=== PATIENT | male | born 1975 | race Caucasian/White ===

== ENCOUNTER 2016-12-03 11:34 | Emergency (ER) | payer OTHER ==
[~2016-12-03] VITALS: Ht 190.5 cm; Wt 95.4 kg
[~2016-12-03 11:34] MED LIST: CHLO25CA10 PO; CLON2TAB3 PO; ESCI1TAB10 PO
[2016-12-03 11:40] VITALS: TEMP 36.9; Ht 190.5 cm; Wt 95.4 kg
[2016-12-03] MEDS ORDERED: CITA40TA12 PO (11:51)
[2016-12-03] MEDS ORDERED: CLONAZEPAM 1 MG TAB PO STA ×2 (12:45→15:14)
[2016-12-03] MEDS ORDERED: MULTI-VITAMIN INFUSION INJ 10 ML, THIAMINE HCL INJ 100 MG, FoLIC ACID INJ 1 MG in SODIU... IV ONE (12:45)
[2016-12-03] MEDS ORDERED: ONDANSETRON INJ 2 MG/ML 2 ML VIAL IV STA (12:45)
[2016-12-03 13:45] LABS: HEMATOCRIT 46.6 % (42-52); MEAN CELL VOLUME 94.1 fL (80-100); MEAN CORPUSCULAR HEMOGLOBIN 34.1 pg (25-34); MEAN CORPUSCULAR HGB CONC 36.3 g/dl (32-36); MEAN PLATELET VOLUME 9.9 fL (7.4-10.4); PLATELET COUNT 209 K/uL (130-400); RED BLOOD COUNT 4.95 M/uL (4.7-6.1)
[2016-12-03 14:04] LABS: BUN/CREATININE RATIO 9.1 (10-20); CALCIUM 8.2 mg/dl (8.5-10.1); MAGNESIUM 2.2 mg/dl (1.8-2.4); POTASSIUM 3.5 mmol/L (3.5-5.1)
[2016-12-03 14:11] LABS: BASO % 0.3 %; BASO ABS # 0.03 K/uL (0-0.2); COMPLETE YES; IG% 0.5 %; LYMPH % 12.6 %; LYMPH ABS # 1.48 K/uL (1.2-3.4); MONO % 7.7 %; NEUT % 78.9 %
[2016-12-03 14:13] LABS: ACETAMINOPHEN < 2 ug/ml (10-30)
--- NOTE | 2016-12-03 14:40 | EMERGENCY ROOM VISIT NOTE ---
History Report prepared by Otf: Elmer Stubbs Under the Supervision of: Dr. Ramona Cancino M.D. First contact with patient: 12:28 Chief Complaint: OTHER COMPLAINT Stated Complaint: ANXIETY, HERNIA History of Present Illness The patient is a 41 year old male with a history of anxiety who presents to the Emergency Room for an acute mental health evaluation. The patient has been feeling increasingly anxious lately. He has prescriptions for Celexa 40 mg daily and Klonopin 1 mg BID. The patient follows up with Dr. Elias, Psychiatrist. The patient ran out of his Klonopin yesterday, but his psychiatrist called for more today. The patient admits that he has had fleeting thoughts of not wanting to wake up in the morning but denies having thoughts of suicide. The patient had a rifle in his apartment, which his mother secured today. The patient has a history of alcohol abuse. He drank 20-30 bottles of vanilla extract along with beer and wine over the past three days. The patient started drinking again one month ago after being sober for two years. The patient's family would like him to go to rehab, but he says he has an obligation to watch a friend's dog for one month. The patient has not been eating well. He has been vomiting over the past 24 hours. He also complains of a right inguinal hernia for the past year that is becoming increasingly tender. He had a left hernia repaired three years ago. Source of History: patient Onset: today Position: other (psyche) Quality: other (mental health evaluation) Timing: other (acute) Associated Symptoms: + vomiting Review of Systems See HPI for pertinent positives & negatives. A total of 10 systems reviewed and were otherwise negative. Past Medical & Surgical Medical Problems: (1) Alcohol abuse (2) Anxiety (3) Depression Family History Depression Social History Smoking Status: Current Every Day Smoker Alcohol Use: heavy Drug Use: none Marital Status: Housing Status: lives with family Occupation Status: employed Current/Historical Medications Scheduled Chlordiazepoxide (Librium), 25 MG PO DIRECTED Citalopram Hydrobromide (Celexa), 40 MG PO DAILY Clonazepam (Klonopin), 2 MG PO BID Allergies Coded Allergies: Penicillins (Verified Adverse Reaction, Unknown, gassy, 12/03/16) Physical Exam Vital Signs Date Time Temp Pulse Resp B/P Pulse Ox O2 Delivery O2 Flow Rate FiO2 12/03/16 16:49 94 18 156/91 94 12/03/16 16:29 96 16 161/89 12/03/16 15:26 92 16 134/98 96 Room Air 12/03/16 14:40 93 18 147/91 95 Room Air 12/03/16 13:32 94 12/03/16 13:28 92 18 144/89 96 Room Air 12/03/16 12:28 103 18 133/98 94 Room Air 12/03/16 11:40 36.9 109 20 160/88 94 Room Air Physical Exam Vital signs reviewed. General: Somewhat unwell-appearing male, no distress, overall deconditioned, disheveled. HEENT: No scleral icterus, PERRLA, neck supple. Atraumatic. Cardiovascular: Regular rate and rhythm, no extra sounds. Pulmonary: Clear to auscultation bilaterally, normal work of breathing. Abdomen: Soft, nontender, nondistended, positive bowel sounds. Musculoskeletal: Atraumatic, no peripheral edema. Neurologic: Patient awake alert and oriented x 3, full strength in all 4 extremities. Cranial nerves 2 through 12 grossly intact. Skin: Warm, dry, no rash : Tenderness to palpation over the right inguinal region / right inferior lower quadrant. There is a palpable enlarged 4 cm region that is tender to palpation. There is no evidence of bowel extending into the scrotum. Genital exam was unremarkable. Inguinal rings without abnormality or distention. Left inguinal region is unremarkable. No evidence for strangulated hernia. Medical Decision & Procedures ER Provider Diagnostic Interpretation: US results as stated below per my review and radiologist interpretation: Limited abdominal ultrasound ABDOMEN FOR HERNIA CLINICAL HISTORY: right inguinal mass hernia TECHNIQUE: Real-time ultrasound COMPARISON STUDY: None FINDINGS: Evaluation of the right inguinal region shows a reducible fat-containing right inguinal hernia. There is no evidence for bowel containment. IMPRESSION: Reducible fat-containing right inguinal hernia. Electronically signed by: Michael Larson M.D. 12/03/2016 3:21 PM Dictated Date/Time: 12/03/2016 3:19 PM Laboratory Results 12/03/16 13:14 Red Blood Count 4.95, Mean Corpuscular Volume 94.1, Mean Corpuscular Hemoglobin 34.1, Mean Corpuscular Hemoglobin Concent 36.3, Mean Platelet Volume 9.9, Neutrophils (%) (Auto) 78.9, Lymphocytes (%) (Auto) 12.6, Monocytes (%) (Auto) 7.7, Eosinophils (%) (Auto) 0.0, Basophils (%) (Auto) 0.3, Neutrophils # (Auto) 9.23, Lymphocytes # (Auto) 1.48, Monocytes # (Auto) 0.90, Eosinophils # (Auto) 0.00, Basophils # (Auto) 0.03 12/03/16 13:14 Test 12/03/16 13:14 White Blood Count 11.70 K/uL (4.8-10.8) Red Blood Count 4.95 M/uL (4.7-6.1) Hemoglobin 16.9 g/dL (14.0-18.0) Hematocrit 46.6 % (42-52) Mean Corpuscular Volume 94.1 fL (80-100) Mean Corpuscular Hemoglobin 34.1 pg (25-34) Mean Corpuscular Hemoglobin Concent 36.3 g/dl (32-36) Platelet Count 209 K/uL (130-400) Mean Platelet Volume 9.9 fL (7.4-10.4) Neutrophils (%) (Auto) 78.9 % Lymphocytes (%) (Auto) 12.6 % Monocytes (%) (Auto) 7.7 % Eosinophils (%) (Auto) 0.0 % Basophils (%) (Auto) 0.3 % Neutrophils # (Auto) 9.23 K/uL (1.4-6.5) Lymphocytes # (Auto) 1.48 K/uL (1.2-3.4) Monocytes # (Auto) 0.90 K/uL (0.11-0.59) Eosinophils # (Auto) 0.00 K/uL (0-0.5) Basophils # (Auto) 0.03 K/uL (0-0.2) RDW Standard Deviation 43.3 fL (36.4-46.3) RDW Coefficient of Variation 12.7 % (11.5-14.5) Immature Granulocyte % (Auto) 0.5 % Immature Granulocyte # (Auto) 0.06 K/uL (0.00-0.02) Anion Gap 19.0 mmol/L (3-11) Est Creatinine Clear Calc Drug Dose 117.4 ml/min Estimated GFR () 108.6 Estimated GFR (Non- 93.7 BUN/Creatinine Ratio 9.1 (10-20) Calcium Level 8.2 mg/dl (8.5-10.1) Magnesium Level 2.2 mg/dl (1.8-2.4) Total Bilirubin 0.6 mg/dl (0.2-1) Direct Bilirubin 0.1 mg/dl (0-0.2) Aspartate Amino Transf (AST/SGOT) 122 U/L (15-37) Alanine Aminotransferase (ALT/SGPT) 68 U/L (12-78) Alkaline Phosphatase 166 U/L (45-117) Total Protein 7.3 gm/dl (6.4-8.2) Albumin 4.1 gm/dl (3.4-5.0) Lipase 222 U/L (73-393) Salicylates Level 2.5 mg/dl (2.8-20) Acetaminophen Level < 2 ug/ml (10-30) Ethyl Alcohol mg/dL 105.0 mg/dl (0-3) Laboratory results per my review. Medications Administered Medications (Trade) Dose Ordered Sig/Madelyn Route Start Time Stop Time Status Last Admin Dose Admin Clonazepam 1 mg 1 mg NOW STAT PO 12/03/16 12:45 12/03/16 15:15 DC 12/03/16 13:22 1 MG Multivitamins/ Thiamine HCl/ Folic Acid/Sodium Chloride (Mvi Infusion Inj/Vitamin B-1 Inj/Folvite Inj/ Nss 1000ml) 1,011.2 ml @ 300 mls/ hr Q3H23M ONCE IV 12/03/16 12:45 12/03/16 16:07 DC 12/03/16 13:17 300 MLS/HR Ondansetron HCl (Zofran Inj) 4 mg NOW STAT IV 12/03/16 12:45 12/03/16 15:15 DC 12/03/16 13:17 4 MG Miscellaneous Information (Nursing Verbal Med Order) 1 ea ONE ONCE N/A 12/03/16 14:45 12/03/16 14:45 DC 12/03/16 14:38 1 EA Clonazepam (Klonopin Tab) 1 mg NOW STAT PO 12/03/16 15:14 12/03/16 15:19 DC 12/03/16 15:25 1 MG ED Course 1230: Past medical records reviewed. The patient was evaluated in room B5. A complete history and physical examination was performed. 1245: Zofran 4 mg IV, Multivitamins 10 ml / Thiamine 100 mg / Folic Acid 1 mg / [id number] ml @ 300 mls/hr, Clonazepam 1 mg PO. 1514: Klonopin 1 mg PO. 1632: Upon reevaluation, the patient appeared to have improvement of his symptoms. I discussed findings with him. He verbalized agreement of the treatment plan. He was discharged home. Medical Decision Etiologies such as mood disorder, infection, hypoglycemia, electrolyte abnormalities, cardiac sources, intracerebral event, toxicologic, neurologic, as well as others were entertained. This patient was evaluated and appeared to be in no significant distress. IV access was obtained and laboratory work was drawn. The patient was hydrated with a banana bag, given 1 mg of Klonopin and IV Zofran. Laboratory work reveals alcohol of 105. Ultrasound of the right inguinal region was obtained and reveals a fat-containing inguinal hernia. Patient was evaluated by mental health and felt not to meet criteria for inpatient admission. The patient does not desire to go to rehabilitation at this time. He will be discharged with Librium per his request. 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 The patient was advised to follow-up with his psychiatrist and drug alcohol counseling. He will return to the ER for worsening of symptoms or any medical concerns. [place] Drug Monitoring Program Search Results: patient reviewed within database Drug Monitoring Findings: Patient has prescriptions mostly from his psychiatrist for benzos. Impression Primary Impression: Alcohol withdrawal Additional Impressions: Anxiety Inguinal hernia, right Scribe Attestation The scribe's documentation has been prepared under my direction and personally reviewed by me in its entirety. I confirm that the note above accurately reflects all work, treatment, procedures, and medical decision making performed by me. Departure Information Dispostion Home / Self-Care Prescriptions Chlordiazepoxide (Librium) 25 Mg Cap 25 MG PO DIRECTED, #18 CAP DAY 1- 50 mg QID DAY 2- 50 mg TID DAY 3- 25 mg TID DAY 4- 25 mg once Prov: Ramona Cancino M.D. 12/03/16 Referrals No Doctor, Assigned (PCP) Forms HOME CARE DOCUMENTATION FORM, IMPORTANT VISIT INFORMATION, WORK / SCHOOL INSTRUCTIONS Patient Instructions My [facility] [employer] Additional Instructions Diagnosis: Alcohol withdrawal, anxiety Librium 50 mg 4 times a day on day 1, 50 mg 3 times a day on day 2, 25 mg 3 times a day on day 3 and 25 mg once a day 4. Drink plenty of water. Eat frequent small meals. Follow-up with your psychiatrist and drug and alcohol counseling. Return to the emergency department for worsening of symptoms or any medical concerns. Problem Qualifiers Primary Impression: Alcohol withdrawal Complication of substance-induced condition: uncomplicated Qualified Codes: F10.230 - Alcohol dependence with withdrawal, uncomplicated
[2016-12-03] MEDS ORDERED: NURSING VERBAL MED ORDER ONE (14:45)
[2016-12-03] MEDS ORDERED: ONDANSETRON INJ 2 MG/ML 2 ML VIAL IV ONE (14:45)
--- NOTE | 2016-12-03 15:22 | DIAGNOSTIC IMAGING REPORT ---
Limited abdominal ultrasound ABDOMEN FOR HERNIA CLINICAL HISTORY: right inguinal mass hernia TECHNIQUE: Real-time ultrasound COMPARISON STUDY: None FINDINGS: Evaluation of the right inguinal region shows a reducible fat-containing right inguinal hernia. There is no evidence for bowel containment. IMPRESSION: Reducible fat-containing right inguinal hernia. Electronically signed by: Michael Larson M.D. 12/03/2016 3:21 PM Dictated Date/Time: 12/03/2016 3:19 PM
[2016-12-03] MEDS ORDERED: CHLO25CA10 PO (16:33)
[2016-12-03 16:49] VITALS: BP 156/91; PULSE 94; O2SAT 94
== END 2016-12-03 16:50 | disposition home or self-care (01) ==
LOC: C.EDB 11:36
DX: F10.239 Alcohol dependence with withdrawal, unspecified (principal); F41.9 Anxiety disorder, unspecified; K40.90 Unilateral inguinal hernia, without obstruction or gangrene, not specified as recurrent; F32.9 Major depressive disorder, single episode, unspecified; F17.200 Nicotine dependence, unspecified, uncomplicated; Z88.0 Allergy status to penicillin

== ENCOUNTER 2016-12-20 21:02 | Emergency (ER) | payer OTHER ==
[~2016-12-20] VITALS: Ht 190.5 cm; Wt 97.2 kg
[~2016-12-20 21:02] MED LIST changes: +CITA40TA12 PO; -ESCI1TAB10 PO
[2016-12-20 21:16] VITALS: Ht 190.5 cm; Wt 97.2 kg
[2016-12-20] MEDS ORDERED: TRAZ50TA35 PO (21:59)
[2016-12-20] MEDS ORDERED: CLONAZEPAM 1 MG TAB PO ONE (22:45)
--- NOTE | 2016-12-20 22:53 | EMERGENCY ROOM VISIT NOTE ---
History Report prepared by Otf: Libra Dowell Under the Supervision of: Dr. Patrick Aponte M.D. 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 The patient states over the last month he has had worsening anxiety along with his depression. He states that he takes clonazepam for anxiety. He states that he use to take Lexapro for his depression but states his medical records manager has changed his medication and that it has not help with his symptoms. The patient states the also has sleeplessness with his worsening symptoms for which he takes trazodone which he states does not help very much. The patient states he has had suicidal thoughts recently but denies any plan. He states over the last month with his symptoms he has been drinking about 8 beers per day and starting to smoke again about a half pack a day. The patient denies the use of any other drugs. The patient states that he wants to be evaluated at an inpatient facility for his symptoms. 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 Review of Systems All systems have been listed, reviewed, and are negative other than those previously mentioned. Please see Additional Medical History Sheet. Past Medical & Surgical Medical Problems: (1) Alcohol abuse (2) Anxiety (3) Depression Family History Depression Social History Smoking Status: Current Every Day Smoker Alcohol Use: heavy Drug Use: none Marital Status: Housing Status: lives with family Occupation Status: employed Current/Historical Medications Scheduled Citalopram Hydrobromide (Celexa), 40 MG PO DAILY Clonazepam (Klonopin), 2 MG PO BID Trazodone Hcl (Trazodone), 50 MG PO HS Allergies Coded Allergies: Penicillins (Verified Adverse Reaction, Unknown, gassy, 12/20/16) Physical Exam Vital Signs Date Time Temp Pulse Resp B/P Pulse Ox O2 Delivery O2 Flow Rate FiO2 12/20/16 23:43 36.8 120 129/81 97 Room Air 12/20/16 21:16 37.0 134 18 142/85 95 Room Air Physical Exam GENERAL: Patient awake, alert, oriented x 3. Patient follows commands. Patient does not appear toxic. Patient is adequately hydrated and well- nourished. Patient appears despondent and somewhat anxious. SKIN: No erythema, pallor, cyanosis or rash HEENT: Normal head, pupils equal, reactive to light and accommodation. Oral cavity and posterior pharynx appear normal. Neck: Without adenopathy, no neck vein distention. LUNGS: Clear to auscultation. No wheezes, no rales, no rhonchi. HEART: No murmurs. No gallops. No rubs EXTREMITIES: No signs of trauma or infection. NEUROLOGIC: Cranial nerves II-XII within normal limits. No gross motor sensory function deficits. PSYCH: Patient is despondent, flat affect, patient is currently not suicidal but has had suicidal ideation but no plan. Medical Decision & Procedures Laboratory Results 12/20/16 22:28 12/20/16 22:28 Test 12/20/16 21:30 12/20/16 22:28 Urine Color YELLOW Urine Appearance CLEAR (CLEAR) Urine pH 6.0 (4.5-7.5) Urine Specific Jewell 1.014 (1.000-1.030) Urine Protein 2+ (NEG) Urine Glucose (UA) NEG (NEG) Urine Ketones TRACE (NEG) Urine Occult Blood NEG (NEG) Urine Nitrite NEG (NEG) Urine Bilirubin NEG (NEG) Urine Urobilinogen NEG (NEG) Urine Leukocyte Esterase NEG (NEG) Urine WBC (Auto) 1-5 /hpf (0-5) Urine RBC (Auto) 0-4 /hpf (0-4) Urine Hyaline Casts (Auto) 5-10 /lpf (0-5) Urine Epithelial Cells (Auto) 5-10 /lpf (0-5) Urine Bacteria (Auto) NEG (NEG) Urine Opiates Screen NEG (NEG) Urine Methadone, Qualitative NEG (NEG) Urine Barbiturates NEG (NEG) Urine Phencyclidine (PCP) Level NEG (NEG) Ur Amphetamine/Methamphetamine NEG (NEG) MDMA (Ecstasy) Screen POS (NEG) Urine Benzodiazepines Screen POS (NEG) Urine Cocaine Metabolite NEG (NEG) Urine Marijuana (THC) NEG (NEG) Red Blood Count 4.70 M/uL (4.7-6.1) Mean Corpuscular Volume 96.4 fL (80-100) Mean Corpuscular Hemoglobin 34.0 pg (25-34) Mean Corpuscular Hemoglobin Concent 35.3 g/dl (32-36) RDW Standard Deviation 45.8 fL (36.4-46.3) RDW Coefficient of Variation 13.2 % (11.5-14.5) Mean Platelet Volume 9.3 fL (7.4-10.4) Anion Gap 15.0 mmol/L (3-11) Est Creatinine Clear Calc Drug Dose 69.0 ml/min Estimated GFR () 57.2 Estimated GFR (Non- 49.3 BUN/Creatinine Ratio 2.0 (10-20) Calcium Level 9.3 mg/dl (8.5-10.1) Total Bilirubin 0.5 mg/dl (0.2-1) Aspartate Amino Transf (AST/SGOT) 102 U/L (15-37) Alanine Aminotransferase (ALT/SGPT) 110 U/L (12-78) Alkaline Phosphatase 236 U/L (45-117) Troponin I < 0.015 ng/ml (0-0.045) Total Protein 7.7 gm/dl (6.4-8.2) Albumin 4.1 gm/dl (3.4-5.0) Globulin 3.6 gm/dl (2.5-4.0) Albumin/Globulin Ratio 1.1 (0.9-2) Thyroid Stimulating Hormone (TSH) 1.110 uIu/ml (0.300-4.500) Ethyl Alcohol mg/dL < 3.0 mg/dl (0-3) Laboratory results as stated above per my review. Medications Administered Medications (Trade) Dose Ordered Sig/Madelyn Route Start Time Stop Time Status Last Admin Dose Admin Clonazepam (Klonopin Tab) 2 mg ONE ONCE PO 12/20/16 23:00 12/20/16 23:01 DC 12/20/16 23:29 2 MG ED Course 2233: Past medical records reviewed. The patient was evaluated in room A6. A complete history and physical examination was performed. 2300: Ordered Klonopin Tab 2 mg PO. 0030: I discussed the medical clearance with the casework supervisor. [facility] Help will be called to evaluate the patient. 0130: The patient is signed out to Dr. Cancino at change of shift. Medical Decision Nurses notes reviewed. Medical history sheet reviewed. Differential diagnosis includes but is not limited to: Depression, anxiety, and suicidality. The patient is extremely anxious. He states that his medications are not controlling his anxiety. The patient has not been sleeping well. The patient has thought about suicide but does not have a plan. The patient would like to be admitted to the hospital on a voluntary basis. Multiple labs were obtained and evaluated. Please see above. At change of shift the patient was signed off to Dr. Cancino. We are still awaiting bed placement. Impression Primary Impression: Depression Additional Impression: Acute anxiety Scribe Attestation The scribe's documentation has been prepared under my direction and personally reviewed by me in its entirety. I confirm that the note above accurately reflects all work, treatment, procedures, and medical decision making performed by me. Departure Information Dispostion Mental Health Acute Care Referrals No Doctor, Assigned (PCP) Patient Instructions My [facility] Problem Qualifiers
[2016-12-20] MEDS ORDERED: CLONAZEPAM 0.5 MG TAB PO ONE (23:00)
[2016-12-20 23:20] LABS: HEMATOCRIT 45.3 % (42-52); MEAN CELL VOLUME 96.4 fL (80-100); MEAN CORPUSCULAR HGB CONC 35.3 g/dl (32-36); MEAN PLATELET VOLUME 9.3 fL (7.4-10.4); PLATELET COUNT 301 K/uL (130-400); WHITE BLOOD COUNT 8.86 K/uL (4.8-10.8)
[2016-12-20 23:28] LABS: URINE APPEARANCE CLEAR (CLEAR); URINE BILIRUBIN NEG (NEG); URINE COLOR YELLOW; URINE NITRITE NEG (NEG); URINE SPECIFIC GRAVITY 1.014 (1.000-1.030); UROBILINOGEN NEG (NEG)
[2016-12-20 23:34] LABS: MANUAL MICROSCOPIC REQUIRED? NO; REVIEW REQ? NO
[2016-12-20 23:41] LABS: ALT/SGPT 110 U/L (12-78); BLOOD UREA NITROGEN 3 mg/dl (7-18); CALCIUM 9.3 mg/dl (8.5-10.1); CARBON DIOXIDE 23 mmol/L (21-32); CHLORIDE 101 mmol/L (98-107); GLUCOSE 133 mg/dl (70-99); POTASSIUM 3.4 mmol/L (3.5-5.1); SODIUM 139 mmol/L (136-145)
[2016-12-20 23:51] LABS: ALB/GLOB RATIO 1.1 (0.9-2); ALKALINE PHOSPHATASE 236 U/L (45-117); AST/SGOT 102 U/L (15-37)
[2016-12-20 23:56] LABS: BENZODIAZEPINE, URINE POS (NEG); COCAINE,URINE NEG (NEG); PHENCYCLIDINE, URINE NEG (NEG)
[2016-12-21 02:36] VITALS: TEMP 36.9
[2016-12-21] MEDS ORDERED: ONDANSETRON 4MG OD TAB PO STA (04:09)
[2016-12-21] MEDS ORDERED: DIAZEPAM 5MG TAB PO STA ×2 (04:09→07:36)
--- NOTE | 2016-12-21 07:38 | EMERGENCY ROOM VISIT NOTE ---
ED Visit Note First contact with patient: 02:05 I received this patient in signout at the change of shift from Dr. Aponte, pending mental health evaluation and placement. The patient was accepted to [facility] treatment [facility]. He did receive 2 doses of oral Valium 10 mg under my care. Secure transportation arrangements are being made. Patient is aware of the plan and agrees. Please refer to Dr. Aponte's notes for further details of the history, physical and visit.
[2016-12-21] MEDS ORDERED: DIAZEPAM 5MG TAB PO ONE (12:30)
[2016-12-21 13:19] VITALS: BP 137/92; PULSE 97; O2SAT 97
--- NOTE | 2016-12-21 13:34 | EMERGENCY ROOM VISIT NOTE ---
ED Visit Note I this patient was signed out to me at shift change by Dr. Cancino. The patient had been placed in [facility] and was awaiting transportation. He waited multiple hours in the ER. I reassessed him several times is sleeping most the time. He woke up and said he was feeling anxious. He did not have any signs of withdrawal. He had been given Valium by Dr. Cancino and I did give him an additional 5 mg of Valium by mouth to prevent any further withdrawal type symptoms. He will be transported to [facility].
[2016-12-25 13:31] LABS: HYDROXYETHYLFLURAZEPAM CONF NEGATIVE NG/ML (CUTOFF=50); HYDROXYMIDAZOLAM NEGATIVE NG/ML (CUTOFF=50); HYDROXYTRIAZOLAM CONF NEGATIVE NG/ML (CUTOFF=50); TEMAZEPAM CONF NEGATIVE NG/ML (CUTOFF=50)
== END 2016-12-21 13:20 ==
LOC: C.EDB 21:04 → C.EDA 12-21 13:20
DX: F32.9 Major depressive disorder, single episode, unspecified (principal); F41.9 Anxiety disorder, unspecified; F17.200 Nicotine dependence, unspecified, uncomplicated; Z79.899 Other long term (current) drug therapy; Z88.0 Allergy status to penicillin; Z81.8 Family history of other mental and behavioral disorders